=== PATIENT | female | born 1990 | race Two or more races ===

== ENCOUNTER 2024-12-26 14:30 | Outpatient (AMB) | payer BC, SELFPAY ==
--- NOTE | 2024-12-26 14:52 | AMB.GYNCLNOT ---
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 She reports regular menstrual cycles ranging from 29 to 32 days in length. The patient has been actively trying to conceive and is currently monitoring her ovulation using LH test kits, which have been showing positive results. Mrs. Huerta mentions that she had a prolactin level checked on day 21 of her cycle, which was reported to be within normal range. She also recalls having a thyroid profile done recently, including T3, but is unsure about TSH testing. The patient reports a history of low iron levels and requests a repeat test for anemia. In terms of current management, Mrs. Huerta is taking vitamins. She inquires about additional supplements that might be beneficial for conception. The patient's medical history includes iron deficiency anemia. Her current medications and supplements include Tolectin (checked on day 21 and was in range), folic acid, and vitamins. ROS: Genitourinary: Positive for regular menstrual cycles with length varying from 29 to 32 days. Assessment & Plan Diagnosis / Problem List (1) Abnormal uterine and vaginal bleeding, unspecified: Status: Acute (2) Endometriosis of unspecified fallopian tube, unspecified depth: Status: Acute Plan Secondary Infertility Assessment: - Regular menstrual cycles ranging from 29 to 32 days - Using LH test kits with positive results, indicating ovulation - Previous prolactin level on cycle day 21 within normal range - T3 levels tested, TSH status uncertain - History of low iron levels - Further workup warranted to evaluate potential causes and guide management Plan: - Order hysterosalpingogram (HSG) to assess tubal patency - Order day 3 FSH and estradiol to evaluate ovarian reserve - Order anti-M?llerian hormone (AMH) to assess ovarian reserve - Order TSH if not recently done - Order vitamin D3 level - Order anemia profile to reassess iron status - Provide [facility] requisition for ordered tests - Continue vitamin with folic acid - Schedule follow-up to review test results and discuss further management
== END 2024-12-26 15:50 | disposition home or self-care (01) ==
LOC: HODSOBC 14:30
PROVIDERS: Supervising Provider Obstetrics & Gynecology; Visit Provider Obstetrics & Gynecology
DX: N80.209 Endometriosis of unspecified fallopian tube, unspecified depth (principal); N93.9 Abnormal uterine and vaginal bleeding, unspecified
CPT/HCPCS: 99212; G0463